=== PATIENT | male | born 1945 | race Caucasian/White ===

== ENCOUNTER → 2017-12-31 | Outpatient (CLI) | payer OTHER ==
[~2017-12-31] VITALS: Ht 177.8 cm; Wt 111.1 kg
[~2017-12-31] MED LIST: ASPIRIN EC81 M1 PO; ASPIRIN81 M2 PO; CARDIZEM CD240 MG PO; EFFIENT10 MG PO; FISH OIL 1,0001 EAC5 PO; FISH OIL 1,001000 M2 PO; FLOMAX0.4 MG PO; GLIPIZIDE XL2.5 MG PO; GLUCOPHAGE500 MG PO; GLUCOTROL5 MG PO; IMDUR 60 MG TAB60 M1 PO; LEVOXYL88 MCG PO; LIPITOR20 MG PO; LIPITOR40 MG PO; LIPITOR80 MG PO; LISINOPRIL10 MG PO; LISINOPRIL20 MG PO; LISINOPRIL5 MG PO; METFORMIN HCL500 MG PO; PLAVIX 75 MG TA75 M1 PO; SYNTHROID88 MCG PO; TAMSULOSIN HCL0.4 MG PO; VITAMIN D32000 UNI1 PO
--- NOTE | ~2017-12-31 | P ---
[facility] [place] [address] PROCEDURE REPORT Name: RODRÍGUEZ MCGILL Room #: REG [facility].#: [id number] Admission: 12/31/17 Attend Phys: Jamshid Mai MD Discharge: Date of : 47 Report #: [id number] THIS REPORT FOR: //name// CC: Jamshid SANCHES BRIEF HISTORY: The patient is a 72-year-old male with a history of a colon adenoma, for high risk screening colonoscopy. PREOPERATIVE DIAGNOSIS: High risk screening colonoscopy. POSTOPERATIVE DIAGNOSES: 1. Multiple colon polyps. 2. Diverticulosis coli, right and left colon. MEDICATIONS: Deep sedation with propofol per Anesthesia. SPECIMEN: 1. Cecal polyp. 2. Hepatic flexure polyp. 3. Proximal ascending colon polyp. ESTIMATED BLOOD LOSS: 3 mL. PROCEDURE: Colonoscopy to cecum and terminal ileum with biopsy. FINDINGS: Prior to propofol sedation, procedure of colonoscopy discussed with the patient as well as potential risks and its complications. He indicates he understands and desires to proceed. DESCRIPTION OF PROCEDURE: With the patient in left lateral decubitus position, digital examination was completed which revealed no abnormalities. Subsequently, the [employer] video colonoscope was introduced in the rectum and advanced under direct vision to the cecum. Done with minimal difficulty. The cecum was identified by the ileocecal valve and the appendiceal orifice. The appendix was partially protruding into the cecum. He had a smooth and benign appearance. The ileocecal valve was visualized. The tip of the scope was advanced in the mouth, ileocecal valve, and briefly, we saw a villous pattern, but could not deeply intubate the ileum due to looping. At that point, the scope was slowly withdrawn and careful circumferential views were obtained. Upon slow withdrawal of the scope, 3 polyps were identified. They were all diminutive polyps. One was identified in the cecum, one in the proximal ascending colon, one in the hepatic flexure, all removed with biopsy forceps. As we withdrew the scope, there were scattered diverticula in the proximal colon. There was noted to be moderately severe diverticular disease of the [address] [address] PROCEDURE REPORT Name: RODRÍGUEZ MCGILL Room #: REG [facility].#: [id number] Admission: 12/31/17 Attend Phys: Jamshid Mai MD Discharge: Date of : 47 Report #: [id number] sigmoid colon without endoscopic evidence of diverticulitis. No other abnormalities were seen. Scope was withdrawn in the rectum. No abnormalities were seen. Upon retroflexion, no abnormalities were seen. Scope was withdrawn. The patient tolerated the procedure well. CONDITION OF THE PATIENT UPON DISCHARGE: Following the procedure, the patient drowsy, aroused, conversant and will be discharged home when fully ambulatory. INSTRUCTIONS TO THE PATIENT AND FAMILY AT THE TIME OF DISCHARGE: Polyps identified and removed as described above. We will follow up on the pathology. If all 3 are adenomas, he should return in 3 years. If one or two adenomas, he should return in 5 years; if none are adenomas, then 10 years would be indicated. He will otherwise return to the care of Dr. Rachele Arcos and return to see me as needed. Last colonoscopy was about 5 years ago. Withdrawal time from the cecum was 11 minutes 16 seconds. <ELECTRONICALLY SIGNED> By: Jamshid Mai MD 01/01/18 1645 [id number] Jamshid Mai MD /nt
--- NOTE | ~2017-12-31 | PATH ---
[facility] [address] [place] [address] PATHOLOGY RPT PROCEDURE Name: RODRÍGUEZ MCGILL Room #: REG [facility] M.R.#: [id number] Admission: 12/31/17 Date of : 47 Discharge: Report #: [id number] Path Case #: [id number] [facility] Accession Number: [id number] . 01 Material submitted: . PART A: CECAL POLYP BX PART B: HEPATIC FLEXURE POYLP BX PART C: PROXIMAL ASCENDING POLYP BX . 01 Clinical history: . Pre-op diagnosis: History of colon polyps Post-op diagnosis: Colon polyps . 02 Diagnosis: A. Polyp, cecal polyp, endoscopic biopsy: - Tubular adenoma. - Negative for high-grade dysplasia. . B. Polyp, hepatic flexure polyp, endoscopic biopsy: - Crypt adenoma / minute tubular adenoma. - Negative for high-grade dysplasia. . C. Polyp, proximal ascending polyp, endoscopic biopsy: - Tubular adenoma admixed with hyperplastic features. - Negative for high-grade dysplasia. (IUV:pit 01/04/2018) QTP/01/04/2018 . 02 Electronically signed: . Maria Eugenia Coy MD, Pathologist NPI- [id number] . 01 Gross description: . A. The specimen is received in formalin, labeled "Rodríguez Mcgill, cecal polyp biopsy". Received is a segment of pale russell soft tissue measuring 0.4 cm in maximum dimensions. The specimen is submitted entirely in cassette A1. . B. The specimen is received in formalin, labeled "Rodríguez Mcgill, hepatic flexure polyp biopsy". Received is a segment of russell-brown soft tissue measuring 0.4 cm in maximum dimensions. The specimen is submitted entirely in cassette B1. . C. The specimen is received in formalin, labeled "Rodríguez Mcgill, proximal ascending polyp biopsy". Received is a segment of pale russell soft tissue measuring 0.5 cm in maximum dimensions. The specimen is submitted entirely in cassette C1. [address] [address] PATHOLOGY RPT PROCEDURE Name: RODRÍGUEZ MCGILL Room #: REG [facility].#: [id number] Admission: 12/31/17 Date of : 47 Discharge: Report #: [id number] Path Case #: [id number] (CAA; 01/01/2018) QAC/QAC . 02 Pathologist provided ICD-10: D12.0, D12.3, D12.2 . 02 CPT . 385317, 937061, 080200 Performed at: [address], [place], [place] [id number] MD Stanford Vaca MD Phone: [phone] Performed at: [address] [id number] MD Maria Eugenia Coy MD Phone: [phone]
== END | disposition home or self-care (01) ==
LOC: GI 06:21
DX: Z12.11 Encounter for screening for malignant neoplasm of colon (principal); D12.3 Benign neoplasm of transverse colon; D12.0 Benign neoplasm of cecum; D12.2 Benign neoplasm of ascending colon; K57.30 Diverticulosis of large intestine without perforation or abscess without bleeding; Z86.010 Personal history of colon polyps; Z87.891 Personal history of nicotine dependence; G47.30 Sleep apnea, unspecified; I10 Essential (primary) hypertension; Z95.5 Presence of coronary angioplasty implant and graft; E78.00 Pure hypercholesterolemia, unspecified; E11.9 Type 2 diabetes mellitus without complications; Z98.41 Cataract extraction status, right eye; Z98.42 Cataract extraction status, left eye
CPT/HCPCS: 62110; 62900